=== PATIENT | male | born 1940 | race African-American/Black ===

== ENCOUNTER 2018-02-18 07:38 | Emergency (ER) | payer MEDICARE ==
[~2018-02-18] VITALS: Ht 185.4 cm; Wt 151.5 kg
[~2018-02-18 07:38] MED LIST: CEPH-264 PO; METH-37 PO; OXYC5CAP PO
--- NOTE | 2018-02-18 08:02 | PHYS DOC ---
Past Medical History Past Medical History: A-Fib (possibly), CVA, Hypertension, Other Additional Past Medical Histor: BILAT KNEE Past Surgical History: Pacemaker, Other Additional Past Surgical Histo: PACEMAKER Alcohol Use: None Drug Use: None Adult General Chief Complaint Chief Complaint: LOWER EXT PAIN HPI HPI Patient is a 77-year-old male who presents to the emergency department for evaluation. He states he has had problems with his knees on and off in the past , but states that over the past 5 days, he has had worsening pain in his right knee. He states that his pain began after he was walking outside on an icy road , he did not slip, but states that he was walking awkwardly out of fear of falling, and his knee became painful after that episode. He denies any direct trauma or strain or sprain to the knee. He did not have any numbness or weakness. He is using support came to ambulate, to take pressure off of his knee. He has not had any other painful areas. Flexion and extension. He is somewhat painful but the patient is able to fully range of motion his knee. There are no alleviating factors to his symptoms. He does take warfarin, for history of a pacemaker placement and a prior stroke. Review of Systems Review of Systems Constitutional: Denies fever or chills [] Eyes: Denies change in visual acuity, redness, or eye pain [] HENT: Denies nasal congestion or sore throat [] Respiratory: Denies cough or shortness of breath [] Cardiovascular: The patient denies any shortness of breath, chest pain, palpitations, or orthopnea [] GI: Denies abdominal pain, nausea, vomiting, bloody stools or diarrhea [] : Denies dysuria or hematuria [] Musculoskeletal: Denies back pain or joint pain, except as noted in the history of present illness. [] Integument: Denies rash or skin lesions [] Neurologic: Denies headache, focal weakness or sensory changes [] Endocrine: Denies polyuria or polydipsia [] All other systems were reviewed and found to be within normal limits, except as documented in this note. Current Medications Current Medications Current Medications Medications (Trade) Dose Ordered Sig/Isadora Start Time Stop Time Status Last Admin Dose Admin Acetaminophen/ Codeine Phosphate (Tylenol #3) 1 tab 1X ONCE 02/18/18 08:00 02/18/18 08:01 DC 02/18/18 08:13 1 TAB Allergies Allergies Allergies Coded Allergies Type Severity Reaction Last Updated Verified No Known Drug Allergies 12/22/15 No Physical Exam Physical Exam PHYSICAL EXAM: CONSTITUTIONAL: Well developed, well nourished HEAD: normocephalic, atraumatic EENT: PERRL, EOMI. Conjunctivae normal color, sclerae non-icteric; moist mucous membranes. NECK: Supple, non-tender; no meningismus. LUNGS: Lungs CTA, breathing even and unlabored. Normal air movement. HEART: Regular rate and rhythm, no murmur CHEST: No deformity; non-tender ABDOMEN: The abdomen is soft, and non-tender, no masses or bruits. EXTREM: There is mild tenderness to palpation of the medial aspect of the knee. There is no tenderness to palpation of the other bony structures of the knee, there is no warmth or erythema, or clinical evidence of joint effusion. Full range of motion is present in the right knee although full flexion and extension is somewhat painful. Straight leg raise is normal. There is no ligamentous laxity to anterior, posterior, medial, or lateral stress, however valgus stress does cause some discomfort on the medial aspect of the knee. There is a strong dorsalis pedis pulse present. The remainder the extremities are unremarkable, with Normal ROM; no deformity, no calf tenderness. Normal pulses palpable in all extremities. There is no pedal edema. SKIN: No rash; no diaphoresis NEURO: Alert; normal speech and cognition; CN's grossly intact; strength grossly intact without focal deficit. BACK: No CVA TTP. Current Patient Data Vital Signs Vital Signs Date Time Temp Pulse Resp B/P (MAP) Pulse Ox O2 Delivery O2 Flow Rate FiO2 02/18/18 08:21 98.4 85 16 156/88 (110) 96 Room Air 98.4 EKG EKG [] Radiology/Procedures Radiology/Procedures [PROCEDURE: KNEE RIGHT 3V Right knee, 3 views, 02/18/2018: HISTORY: Worsening knee pain There is moderate narrowing of the knee joint with moderate marginal spurring. There is also moderate hypertrophic spurring at the patellofemoral articulation. No fracture or dislocation is identified. Moderate arterial calcifications are noted. No large joint effusion is seen. IMPRESSION: 1. 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 2. No acute bony abnormality is detected. ] Course & Med Decision Making Course & Med Decision Making Pertinent Imaging studies reviewed. (See chart for details) [8:30 AM: The patient's condition remains stable. I discussed placing an immobilizer but the patient feels that this would further restrict his ambulation and declines. He did come wearing a knee brace, which I encouraged him to continue to do. He'll be given referral for outpatient orthopedic follow- up. We discussed return precautions as well.] Dragon Disclaimer Dragon Disclaimer This electronic medical record was generated, in whole or in part, using a voice recognition dictation system. Departure Departure Impression: Primary Impression: Right knee pain Disposition: HOME, SELF-CARE Condition: STABLE Referrals: CHULA RENTERIA II, MD Patient Instructions: Arthralgia, Arthritis, Degenerative-Brief, Arthritis, Nonspecific Additional Instructions: Applying ice to the affected area may help improve your pain. Scripts Acetaminophen With Codeine (TYLENOL WITH CODEINE #3 TABLET) 1 Each Tablet 1 TAB PO PRN Q6HRS PRN for PAIN, #20 TAB Prov: TARIQ DAVENPORT MD 02/18/18 TARIQ DAVENPORT MD Feb 18, 2018 08:02
[2018-02-18] MEDS: ACETAMINOPHEN/CODEINE 300/30MG TABLET. PO ONE (08:13)
[2018-02-18 08:21] VITALS: BP 156/88
--- NOTE | 2018-02-18 08:25 | RAD ---
Right knee, 3 views, 02/18/2018: HISTORY: Worsening knee pain There is moderate narrowing of the knee joint with moderate marginal spurring. There is also moderate hypertrophic spurring at the patellofemoral articulation. No fracture or dislocation is identified. Moderate arterial calcifications are noted. No large joint effusion is seen. IMPRESSION: 1. 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 2. No acute bony abnormality is detected. Electronically signed by: Max Dominguez MD (02/18/2018 8:21 AM) [facility]
[2018-02-18] MEDS ORDERED: ACET-704 PO (08:33)
== END 2018-02-18 10:00 | disposition home or self-care (01) ==
LOC: ER 07:38
DX: M25.561 Pain in right knee (principal); Z86.73 Personal history of transient ischemic attack (TIA), and cerebral infarction without residual deficits; I10 Essential (primary) hypertension; Z95.0 Presence of cardiac pacemaker; X50.1XXA Overexertion from prolonged static or awkward postures, initial encounter; Y93.89 Activity, other specified; Y92.89 Other specified places as the place of occurrence of the external cause; Y99.8 Other external cause status
CPT/HCPCS: 73562; 99283

== ENCOUNTER 2019-02-05 11:17 | Emergency (ER) | payer MEDICARE ==
[~2019-02-05] VITALS: Ht 185.4 cm; Wt 136.1 kg
[~2019-02-05 11:17] MED LIST changes: +ACET-704 PO
[2019-02-05 11:48] VITALS: BP 144/81
[2019-02-05 12:12] LABS: BILIRUBIN,URINE SMALL (NEG); CLARITY,URINE CLOUDY; COLOR,URINE AMBER; NITRITE,URINE NEGATIVE (NEG); PH,URINE 5.5; PROTEIN,URINE NEGATIVE (NEG-TRACE); UROBILINOGEN,URINE 0.2 mg/dL (0.2 mg/dL)
[2019-02-05 12:31] LABS: AMORPHOUS SEDIMENT,UR PRESENT /HPF; HYALINE CASTS, URINE MODERATE /HPF; SQUAMOUS EPITHELIAL CELL,UR MANY /LPF
[2019-02-05 12:32] LABS: BACTERIA,URINE 0 /HPF (0-FEW); RBC,URINE 0 /HPF (0-2)
[2019-02-05] MEDS ORDERED: HYDR-3164 PO (12:42)
[2019-02-05] MEDS ORDERED: CYCL10TA2 PO (12:42)
--- NOTE | 2019-02-05 12:43 | PHYS DOC ---
Past Medical History Past Medical History: A-Fib, Arthritis, CVA, Diabetes-Type II, GERD, Glaucoma, High Cholesterol, Hypertension, Other Additional Past Medical Histor: BILAT KNEE Past Surgical History: Pacemaker, Other Additional Past Surgical Histo: PACEMAKER Alcohol Use: Rarely Drug Use: None Adult General Chief Complaint Chief Complaint: LOWER BACK PAIN OR INJURY [facility] Patient is a 78 year old male patient with previous history of low back pain, diabetes, hypertension, A. fib, high cholesterol among other illnesses who presents to the ED today complaining of 7 out of 10 right low back pain radiating to the right lower extremity that began 3 days ago. Patient denies any known injury. Denies any numbness or tingling to bilateral lower extremities. Denies any loss of bowel bladder function. He states the pain is worse on weight bearing. Review of Systems Review of Systems Constitutional: Denies fever or chills [] Eyes: Denies change in visual acuity, redness, or eye pain [] HENT: Denies nasal congestion or sore throat [] Respiratory: Denies cough or shortness of breath [] Cardiovascular: No additional information not addressed in HPI [] GI: Denies abdominal pain, nausea, vomiting, bloody stools or diarrhea [] : Denies dysuria or hematuria [] Musculoskeletal: Reports right low back pain radiating to the right lower extremity Integument: Denies rash or skin lesions [] Neurologic: Denies headache, focal weakness or sensory changes [] All other systems were reviewed and found to be within normal limits, except as documented in this note. Allergies Allergies Allergies Coded Allergies Type Severity Reaction Last Updated Verified No Known Drug Allergies 12/22/15 No Physical Exam Physical Exam Constitutional: Well developed, well nourished, no acute distress, non-toxic appearance. [] HENT: Normocephalic, atraumatic, bilateral external ears normal, oropharynx moist, no oral exudates, nose normal. [] Eyes: PERRLA, EOMI, conjunctiva normal, no discharge. [] Neck: Normal range of motion, no tenderness, supple, no stridor. [] Cardiovascular:Heart rate regular rhythm, no murmur [] Lungs & Thorax: Bilateral breath sounds clear to auscultation [] Abdomen: Bowel sounds normal, soft, no tenderness, no masses, no pulsatile masses. [] Skin: Warm, dry, no erythema, no rash. [] Back: obese patient. Diffuse paraspinal muscle tenderness the right lumbar spine, no midline lumbar spine tenderness, no CVA tenderness. [] Extremities: No tenderness, no cyanosis, no clubbing, ROM intact, no edema. [] Neurologic: Alert and oriented X 3, normal motor function, normal sensory function, no focal deficits noted. [] Psychologic: Affect normal, judgement normal, mood normal. [] Current Patient Data Vital Signs Vital Signs Date Time Temp Pulse Resp B/P (MAP) Pulse Ox O2 Delivery O2 Flow Rate FiO2 02/05/19 11:48 98.8 81 18 144/81 (102) 96 Room Air 98.8 Lab Values Laboratory Tests Test 02/05/19 12:00 Urine Collection Type Unknown Urine Color Kristy Urine Clarity Cloudy Urine pH 5.5 Urine Specific Greene 1.020 Urine Protein Negative mg/dL (NEG-TRACE) Urine Glucose (UA) Negative mg/dL (NEG) Urine Ketones (Stick) Negative mg/dL (NEG) Urine Blood Negative (NEG) Urine Nitrite Negative (NEG) Urine Bilirubin Small (NEG) Urine Urobilinogen Dipstick 0.2 mg/dL (0.2 mg/dL) Urine Leukocyte Esterase Negative (NEG) Urine RBC 0 /HPF (0-2) Urine WBC 1-4 /HPF (0-4) Urine Squamous Epithelial Cells Many /LPF Urine Amorphous Sediment Present /HPF Urine Bacteria 0 /HPF (0-FEW) Urine Hyaline Casts Moderate /HPF Urine Mucus Marked /LPF EKG EKG [] Radiology/Procedures Radiology/Procedures [] Course & Med Decision Making Course & Med Decision Making Pertinent Labs and Imaging studies reviewed. (See chart for details) This is a 78-year-old male patient presenting to the ED today with right low back pain radiating to the right lower extremity. No known injury. Previous history of back pain. UA is negative. Patient has no cauda equina syndrome symptoms. Follow-up with her chiropractor who he has an appointment with. Rx for pain medicine provided Loren Disclaimer Beccaon Disclaimer This electronic medical record was generated, in whole or in part, using a voice recognition dictation system. Departure Departure Impression: Primary Impression: Lumbago Disposition: HOME, SELF-CARE Condition: STABLE Referrals: UNKNOWN PCP NAME (PCP) Follow up with the primary care doctor as well as chiropractor as soon as you Patient Instructions: Back Pain, Adult, [id number] Additional Instructions: You were evaluated in the emergency room for exacerbation of low back pain. Please continue following up with the chiropractor. Continue using heat to your low back. Follow up with your doctor in 1-2 weeks Scripts Cyclobenzaprine Hcl (CYCLOBENZAPRINE HCL) 10 Mg Tablet 1 TAB PO TID, #30 TAB Prov: LESVIA XIAO APRN 02/05/19 Hydrocodone/Apap 5-325 (NORCO 5-325 TABLET) 1 Each Tablet 1 TAB PO Q6-8HRS PRN for PAIN, #20 TAB Prov: LESVIA XIAO APRN 02/05/19 Problem Qualifiers Primary Impression: Lumbago Chronicity: acute Back pain laterality: right Sciatica presence: with sciatica Sciatica laterality: sciatica of right side Qualified Codes: M54.41 - Lumbago with sciatica, right side LESVIA XIAO APRN Feb 05, 2019 12:43
== END 2019-02-05 13:06 | disposition home or self-care (01) ==
LOC: ER 11:17
DX: M54.41 Lumbago with sciatica, right side (principal); I48.91 Unspecified atrial fibrillation; K21.9 Gastro-esophageal reflux disease without esophagitis; E11.39 Type 2 diabetes mellitus with other diabetic ophthalmic complication; H40.9 Unspecified glaucoma; I10 Essential (primary) hypertension; E78.00 Pure hypercholesterolemia, unspecified; Z95.0 Presence of cardiac pacemaker
CPT/HCPCS: 81001; 99283